=== PATIENT | male | born 1970 | race African-American/Black ===

== ENCOUNTER 2023-09-30 01:39 | Emergency (ER) | payer MEDICAID, SELFPAY ==
[2023-09-30 01:58] VITALS: BP 192/119; PULSE 83; RESP 20; TEMP 36.9; O2SAT 97; BMI 38.5
[2023-09-30 03:40] VITALS: BP 192/117; PULSE 74; RESP 18; TEMP 36.7; O2SAT 98
== END 2023-09-30 05:17 | disposition left against medical advice (07) ==
PROVIDERS: Emergency Provider Emergency Medicine
DX: R03.0 Elevated blood-pressure reading, without diagnosis of hypertension (principal)
CPT/HCPCS: 99282

== ENCOUNTER 2024-02-11 21:11 | Emergency (ER) | payer OTHER, SELFPAY ==
--- NOTE | ~2024-02-11 | US_ITS ---
EXAMINATION: US SCROTUM CLINICAL INFORMATION: Right testicle pain for months. Matter ischemia. Rule out torsion.. COMPARISON: None available. TECHNIQUE: A sonogram of the scrotum was performed assessing johns-scale appearance and color Doppler flow. Spectral Doppler analysis of the arterial and venous flow were performed in the testes bilaterally. FINDINGS: RIGHT: Right testicle measures 5.7 x 2.4 x 3.6 cm, volume 25 mL. No focal testicular parenchymal lesions are visualized. Prominent, linear vessels within the right mid testicle, of uncertain etiology and significance. Spectral Doppler analysis of the arterial and venous flow is normal in the right testis. Right epididymal head is normal in size. 0.5 x 0.5 x 0.3 cm right epididymal cyst versus spermatocele. No right hydrocele or varicocele is seen. Right epididymal Doppler flow is normal. LEFT: Left testicle measures 5.5 x 2.3 x 3.3 cm, volume 21 mL. No focal testicular parenchymal lesions are visualized. Spectral Doppler analysis of the arterial and venous flow is normal in the left testis. Left epididymal head is normal in size. No left hydrocele or varicocele is seen. Left epididymal Doppler flow is normal. US/US scrotum IMPRESSION: No acute finding. No evidence of torsion. Prominent, linear vessels within the right mid testicle, of uncertain etiology and significance.
--- NOTE | ~2024-02-11 | CT_ITS ---
EXAMINATION: CT ABDOMEN AND PELVIS WITHOUT CONTRAST CLINICAL INFORMATION: Reason for Exam R flank , RLQ pain R/O appendicitis, ureteral ston COMPARISON: None available. TECHNIQUE: Multidetector volumetric imaging was performed from the superior aspect of the liver through the pubic symphysis. Sagittal and coronal reformatted images were obtained on the technologist's workstation. This CT examination was performed using dose optimization techniques as appropriate, variously including the following: *Automated exposure control *Adjustment of mA and/or kV according to patient size (this includes techniques or standardized protocols for targeted exams where dose is matched to indication/reason for exam; i.e. extremities or head) *Use of iterative reconstruction technique DLP: 927 mGy-cm FINDINGS: LUNG BASES: Mild dependent bibasilar atelectasis. LIVER, GALLBLADDER, AND BILIARY TREE: Liver demonstrates a mildly nodular contour suspicious for stenosis. No focal lesion identified on this noncontrast exam, which limits evaluation. No biliary ductal dilatation. The gallbladder is unremarkable with no evidence of radiopaque gallstones, gallbladder wall thickening, or obvious pericholecystic inflammatory changes. PANCREAS: Unremarkable. SPLEEN: Enlarged, measuring approximately 17 cm in the axial plane. ADRENAL GLANDS: Unremarkable. KIDNEYS AND URETERS: No hydronephrosis or obstructing calculus bilaterally. BLADDER: Mildly distended and grossly unremarkable. GASTROINTESTINAL TRACT: There is a thin curvilinear hyperdensity in the second portion of the duodenum, of uncertain etiology and which could represent an ingested foreign body. Additional similar density is present within small bowel of the right lower quadrant on coronal image 49, and smaller foci of scattered hyperdensity are present within the small bowel at the lower abdomen. No evidence of bowel obstruction. No significant bowel wall thickening is seen. The appendix is unremarkable. No free fluid or free air is seen. ABDOMINAL WALL: No significant hernia is appreciated. LYMPH NODES: Normal. VASCULAR: Prominent superficial veins in the anterior abdominal wall. Recanalized umbilical vein is also noted. PELVIC VISCERA: Mildly enlarged prostate gland measuring 5.1 cm in short axis dimension. OSSEOUS STRUCTURES: Degenerative changes of the lower lumbar spine and lumbosacral junction. CT/CT abdomen pelvis wo IV con IMPRESSION: 1. No hydronephrosis or obstructing calculus. Normal appendix. 2. Thin curvilinear hyperdensity in the second portion of the duodenum, of uncertain etiology and which could represent an ingested foreign body versus other ingested material. Additional similar-appearing densities are present within small bowel at the right lower quadrant, and smaller hyperdense foci are present within the small bowel at the lower abdomen. No evidence of bowel obstruction. 3. Cirrhotic liver with sequela of portal hypertension including splenomegaly and prominent superficial veins in the anterior abdominal wall. 4. Mildly enlarged prostate gland.
--- NOTE | ~2024-02-11 | US_ITS ---
EXAMINATION: US SCROTUM CLINICAL INFORMATION: Right testicle pain for months. Matter ischemia. Rule out torsion.. COMPARISON: None available. TECHNIQUE: A sonogram of the scrotum was performed assessing johns-scale appearance and color Doppler flow. Spectral Doppler analysis of the arterial and venous flow were performed in the testes bilaterally. FINDINGS: RIGHT: Right testicle measures 5.7 x 2.4 x 3.6 cm, volume 25 mL. No focal testicular parenchymal lesions are visualized. Prominent, linear vessels within the right mid testicle, of uncertain etiology and significance. Spectral Doppler analysis of the arterial and venous flow is normal in the right testis. Right epididymal head is normal in size. 0.5 x 0.5 x 0.3 cm right epididymal cyst versus spermatocele. No right hydrocele or varicocele is seen. Right epididymal Doppler flow is normal. LEFT: Left testicle measures 5.5 x 2.3 x 3.3 cm, volume 21 mL. No focal testicular parenchymal lesions are visualized. Spectral Doppler analysis of the arterial and venous flow is normal in the left testis. Left epididymal head is normal in size. No left hydrocele or varicocele is seen. Left epididymal Doppler flow is normal. US/US scrotum doppler IMPRESSION: No acute finding. No evidence of torsion. Prominent, linear vessels within the right mid testicle, of uncertain etiology and significance.
[2024-02-11 22:36] VITALS: BP 186/101; PULSE 61; RESP 16; TEMP 36.5; O2SAT 97; BMI 37.0
[2024-02-11 22:55] VITALS: BP 192/92; PULSE 55; RESP 19; TEMP 36.5; O2SAT 97
[2024-02-11 23:05] LABS: MANUAL DIFF FLAG NO
[2024-02-11 23:15] LABS: Basophils Percent Auto 0.5 % (0-2); Eosinophils Absolute Auto 0.1 X10*3/uL (0.0-0.4); Hematocrit 48.1 % (42.0-52.0); Hemoglobin 16.6 g/dl (14.0-18.0); Imm Gran Abs Auto 0.01 X10*3/uL (0.00-0.03); Imm Gran Pct Auto 0.2 % (0.0-0.4); Lymphocytes Absolute Auto 1.6 X10*3/uL (1.2-4.9); Lymphocytes Percent Auto 27.5 % (20-40); Mean Corpuscular HGB Conc 34.5 g/dl (31.0-36.0); Mean Corpuscular Hemoglobin 28.9 pg (27.0-33.0); Mean Corpuscular Volume 83.8 fL (80.0-98.0); Mean Platelet Volume 10.9 fL (9.4-12.4); Monocytes Absolute Auto 0.3 X10*3/uL (0.1-1.2); Monocytes Percent Auto 5.8 % (2-11); Neutrophils Absolute Auto 3.8 x10*3/uL (2.0-8.3); Platelet Count 130 X10*3/uL (160-400); Red Blood Count 5.74 X10*6/uL (4.60-5.80); White Blood Count 5.9 X10*3/uL (4.8-10.8)
[2024-02-11 23:16] LABS: Appearance Urine Clear; Color Urine Yellow; Glucose Urine UA Negative (Negative); Leukocyte Esterase Urine Small (1+) (Negative); Nitrite Urine Negative (Negative); PH 5.5 (5.0-9.0); UMIC TRIGGER UACC YES; Urine Blood Negative (Negative); Urine Ketones Negative (Negative); Urine Protein Negative (Neg-Trace)
[2024-02-11 23:19] LABS: Alanine Aminotransferase 26 U/L (0-40); Albumin Level 4.2 g/dL (3.5-5.0); Alkaline Phosphatase 118 U/L (39-117); Anion Gap 14 (12-20); Aspartate Amino Transferase 32 U/L (5-37); Bilirubin Total 0.8 mg/dL (0.0-1.0); Blood Urea Nitrogen 12 mg/dL (9-16); Calcium 9.9 mg/dL (8.4-10.2); Carbon Dioxide 25 mmol/L (22-29); Chloride 106 mmol/L (96-108); Creatinine Clr Calc Pharmacy 148.4; Estimated Glomerular Filt Rate > 60; Glucose Random 123 mg/dL (60-115); Potassium 3.3 mmol/L (3.3-5.1); Sodium 142 mmol/L (135-145); Total Protein 7.7 g/dL (6.5-8.0)
[2024-02-11 23:24] LABS: Bacteria Urine None Seen (None Seen); Hyaline Casts Urine 0-2 /LPF (0-2); RBC Urine 0-2 /HPF (0-2); Squamous Epithelial Cell Urine 0-2 /HPF (0-2); UACC Culture Trigger YES; WBC Urine 0-5 /HPF (0-5)
[2024-02-12 01:43] VITALS: BP 185/98; PULSE 51; RESP 14; TEMP 36.6; O2SAT 95
--- NOTE | 2024-02-12 01:49 | PC.NURSE ---
Pt aox4 resting at the beside. No apparent distress noted. Reports right sided groin pain/testicular pain, 8/10, x 4 months. Worsens with sexual intercourse and bloody discharge. Denies any N/V/D, chest pain, or sob. Pending physician eval. Monitoring is ongoing.
[2024-02-12 03:02] VITALS: BP 180/93; PULSE 49; RESP 17; O2SAT 97
--- NOTE | 2024-02-12 04:37 | ED.MALEGU ---
HPI - Male Genitourinary General Chief complaint: Urogenital-Male Stated complaint: blood in sperm? Pain Time Seen by Provider: 02/12/24 04:37 Source: patient Mode of arrival: ambulatory Limitations: no limitations History of Present Illness HPI Narrative: 53-year-old male with a history of hypertension, hepatitis-C, treated, cirrhosis who presents emergency department for evaluation of right flank pain, right lower quadrant pain, right testicular pain, hematospermia. The patient states he has been having right-sided abdominal pain for approximately 1.5 months. He states last night at around 20:00 hours the pain became worse. Points to his right flank and right lower quadrant when asked to localize the pain. States the pain does radiate to his right testicle. He states the pain is severe, sharp pain which is constant and is 10/10. Patient states over the last 4 months whenever he ejaculates, he noticed his blood in the semen. He states that the ejaculation is painful. He states that he does have urinary frequency but no dysuria. Patient has not noticed any penile discharge. He is sexually active. He denied fever, chills, nausea, vomiting, diarrhea, change in his bowel movements. Related Data Previous Rx's ?Medication ?Instructions ?Recorded doxycycline hyclate 100 mg tablet 100 mg PO Q12H 14 days #28 tabs 02/12/24 morphine 15 mg immediate release 15 mg PO Q6H PRN pain #10 tabs 02/12/24 tablet Allergies Allergy/AdvReac Type Severity Reaction Status Date / Time Codeine Sulfate Allergy Unknown Unknown Uncoded 02/11/24 22:42 [facility] Past Medical History [facility] Narrative: Past medical history: Hypertension. Social History Social History Smoked in Last 30 Days: Yes Use of substances other than those prescribed or required for medical reasons: No Advance Directives: No Advance Directives Information Provided: No Do you have a plan to hurt others: No Plan Physical Exam Vital Signs: Vital Signs: Last Vital Signs Temp 97.6 F 02/12/24 05:08 Pulse 50 02/12/24 05:08 Resp 14 02/12/24 05:08 BP 182/90 H 02/12/24 05:08 Pulse Ox 95 02/12/24 05:08 O2 Del Method Room Air 02/12/24 05:08 BMI result Body Mass Index 37.0 Vital signs revealed low heart rate 49, elevated blood pressure 180/93 Exam: General: Awake, alert in no distress Head: Normocephalic, atraumatic EENT: PERRL, Lids normal, sclera normal, conjunctiva normal, nose normal , ears normal, throat without erythema or exudates Neck: Supple, no adenopathy Lung: breath sounds symmetric, no wheezing, rales or rhonchi Chest: symmetric movement, nontender Heart: regular rate and rhythm, normal S1, S2 no murmurs or rubs Abdomen: Patient has moderate right lower quadrant tenderness, normoactive bowel sounds, no rebound, no voluntary or involuntary guarding exam: Normal uncircumcised male penis, no urethral discharge noted, both testicles are descended, there is tenderness with the palpation of the right tenderness and right epididymitis with no enlargement of these structures, scrotal skin is normal with no erythema or increased warmth Back: no vertebral tenderness, mild to moderate right CVA tenderness Extremities: no deformities, moves all extremities symmetrically Neuro: Awake, alert, oriented, normal speech, moves all extremities symmetrically Psych: Pleasant, cooperative Medications Administered Discontinued Medications Generic Name Dose Route Start Last Admin Trade Name Freq PRN Reason Stop Dose Admin Sodium Chloride 1,000 mls @ 999 mls/hr 02/12/24 04:51 02/12/24 07:31 Ns IV 02/12/24 05:51 Infused .Q1H1M STA Infusion Ketorolac Tromethamine 15 mg 02/12/24 04:51 02/12/24 05:11 Ketorolac Tromethamine 15 Mg/Ml Vial IVPUSH 02/12/24 04:52 15 mg ONCE STA Administration Morphine Sulfate 4 mg 02/12/24 04:51 02/12/24 05:12 Morphine Sulfate 4 Mg/Ml Cartridge IVPUSH 02/12/24 04:52 4 mg ONCE STA Administration Protocol Medical Decision Making Medical Decision Making MDM Narrative: 53-year-old male with a history of hypertension who presents emergency department for evaluation of right flank pain, right lower quadrant pain, right testicular pain x1 0.5 months, worse since 20:00 hours last nightt and hematospermia x4 months every time he ejaculates. Patient does have urinary frequency but no penile discharge. He is sexually active. He states that his right flank pain and right lower quadrant pain is severe and is 10/10. He denied fever, chills, nausea, vomiting, diarrhea, change in his bowel movements. Vital signs did reveal low heart rate and elevated blood pressure. Physical examination did reveal right lower quadrant, right flank tenderness, right testicular and epididymal tenderness. Differential diagnosis: ?Includes but is not limited to STD, urethritis, prostatitis, epididymitis, testicular torsion, appendicitis, renal colic, ureteral colic, ureteral stone Following evaluation was ordered: CBC, CMP, lipase, urinalysis, urine for chlamydia and Neisseria gonorrhea PCR, CT abdomen pelvis without IV contrast, ultrasound scrotum, ultrasound scrotum Doppler Patient was initially treated with the following:Normal saline IV x1 L, ketorolac 15 mg IV, morphine 4 mg IV Course: 07:27 hours My interpretation patient's laboratory evaluation is as follows: CBC was normal except for a low platelet count of a 851570. Glucose elevated 123. Alk-phos elevated 118. Urinalysis was positive for leukocyte esterase. Microscopic revealed 0-2 RBCs, 0-[address] scan of the patient's abdomen pelvis with IV contrast did not reveal a clear etiology for the patient's pain, there was no kidney or ureteral stones noted. The patient does have cirrhosis with splenomegaly but this is secondary to his hepatitis-C. This explains his low platelet count as well. Patient does have an enlarged prostate. The patient will be treated for possible urethritis/prostatitis is the cause of his hematospermia. Patient was given ceftriaxone 500 mg with lidocaine IM, metronidazole 2 g IV and prescribed doxycycline 100 mg q.12 hours times 14 days. Given his cirrhosis, he can not take Tylenol or ibuprofen for his pain therefore he was prescribed morphine 15 mg every 6 hours as needed for pain. He was given printed and verbal instructions and discharged home. Patient was also given a work note. Admission/Observation Consideration of admission/observation: Escalation of care including admission/observation considered Lab Data MDM Lab Attestation statement: I reviewed the patient's lab results. 02/11/24 22:59 02/11/24 22:59 Labs: Lab Results 02/11/24 02/11/24 Range/Units 22:59 23:11 WBC 5.9 (4.8-10.8) X10*3/uL RBC 5.74 (4.60-5.80) X10*6/uL Hgb 16.6 (14.0-18.0) g/dl Hct 48.1 (42.0-52.0) % MCV 83.8 (80.0-98.0) fL MCH 28.9 (27.0-33.0) pg MCHC 34.5 (31.0-36.0) g/dl RDW 13.0 (11.0-16.0) % Plt Count 130 L (160-400) X10*3/uL MPV 10.9 (9.4-12.4) fL Immature Gran % (Auto) 0.2 (0.0-0.4) % Neut % (Auto) 64.0 (45-73) % Lymph % (Auto) 27.5 (20-40) % [place] % (Auto) 5.8 (2-11) % Eos % (Auto) 2.0 (0-4) % Baso % (Auto) 0.5 (0-2) % Lymph # (Auto) 1.6 (1.2-4.9) X10*3/uL [place] # (Auto) 0.3 (0.1-1.2) X10*3/uL Eos # (Auto) 0.1 (0.0-0.4) X10*3/uL Baso # (Auto) 0.0 (0.0-0.2) X10*3/uL Abs Immat Gran (auto) 0.01 (0.00-0.03) X10*3/uL Absolute Neuts (auto) 3.8 (2.0-8.3) x10*3/uL Absolute Nucleated RBC 0.000 (0.0-0.012) X10*3/uL Nucleated RBC % (auto) 0.0 (0.0-0.2) /100WBC Sodium 142 (135-145) mmol/L Potassium 3.3 (3.3-5.1) mmol/L Chloride 106 (96-108) mmol/L Carbon Dioxide 25 (22-29) mmol/L Anion Gap 14 (12-20) BUN 12 (9-16) mg/dL Creatinine 0.86 (0.5-1.4) mg/dL Estim Creat Clear Calc 148.4 Estimated GFR > 60 Random Glucose 123 H (60-115) mg/dL Calcium 9.9 (8.4-10.2) mg/dL Total Bilirubin 0.8 (0.0-1.0) mg/dL AST 32 (5-37) U/L ALT 26 (0-40) U/L Alkaline Phosphatase 118 H (39-117) U/L Total Protein 7.7 (6.5-8.0) g/dL Albumin 4.2 (3.5-5.0) g/dL Lipase 31 (8-78) U/L Urine Color Yellow Urine Appearance Clear Urine pH 5.5 (5.0-9.0) Ur Specific [place] 1.020 (1.005-1.025) Urine Protein Negative (Neg-Trace) mg/dL Urine Glucose (UA) Negative (Negative) mg/dL Urine Ketones Negative (Negative) mg/dL Urine Blood Negative (Negative) Urine Nitrite Negative (Negative) Ur Leukocyte Esterase Small (1+) H (Negative) Urine RBC 0-2 (0-2) /HPF Urine WBC 0-5 (0-5) /HPF Ur Squamous Epith Cells 0-2 (0-2) /HPF Urine Bacteria None Seen (None Seen) Hyaline Casts 0-2 (0-2) /LPF Radiology Impression Discussion of test interpretation with radiology: I have reviewed the radiologist's reading. Radiologist Impression: CT abdomen pelvis wo IV con IMPRESSION: 1. No hydronephrosis or obstructing calculus. Normal appendix. 2. Thin curvilinear hyperdensity in the second portion of the duodenum, of uncertain etiology and which could represent an ingested foreign body versus other ingested material. Additional similar-appearing densities are present within small bowel at the right lower quadrant, and smaller hyperdense foci are present within the small bowel at the lower abdomen. No evidence of bowel obstruction. 3. Cirrhotic liver with sequela of portal hypertension including splenomegaly and prominent superficial veins in the anterior abdominal wall. 4. Mildly enlarged prostate gland. Dictated By: Hardeep Singer MD US scrotum IMPRESSION: No acute finding. No evidence of torsion. Prominent, linear vessels within the right mid testicle, of uncertain etiology and significance. Dictated By: Tanner Brady Prescription Management I considered prescription management with: Pain Medication and Antibiotic Critical Care Time Critical Care Time Critical Care Time: Yes Total Critical Care Time: 35 Attestation: Critical Care: The patient was critically ill with a high probability of imminent or life threatening deterioration. I spent greater than 30 minutes of discontinuous time evaluating the patient,delivering critical care at the bedside, discussing and evaluating pertinent data with consultants. Critical care time does not include time spent performing separately billable procedures or teaching. Total time spent performing critical care was 35 minutes. Discharge Plan Discharge Clinical Impression: Hematospermia, Acute prostatitis, Pain in right testicle Abdominal pain Qualifiers: Abdominal location: right lower quadrant Qualified Code(s): R10.31 - Right lower quadrant pain Patient Disposition: Home, Self-Care Instructions: Prostatitis (ED) Additional Instructions: The CT scan is consistent with cirrhosis of the liver and enlarged spleen which was most likely caused by your hepatitis-C which was treated. There was no finding on the CT scan to explain your pain. The ultrasound of your testicle did not reveal any abnormality to explain your pain. It is possible that you may have an infection of your prostate and this may be causing your pain in the testicle as well as the blood in your semen (hematospermia) You were treated with ceftriaxone mixed with lidocaine 500 mg IM for possible gonorrhea. You were also treated with metronidazole 2 g orally for possible Trichomonas. I gave you a prescription for doxycycline 100 mg every 12 hours for 14 days, this will treat chlamydia and a prostate infection. Given your cirrhosis you can not take Tylenol ibuprofen therefore I prescribed morphine 15 mg every 6 hours as needed for pain. You were given pills. This medication can be addicting and if your concerned about addiction do not get the prescription filled or ask for less pills 10 prescribed. This medication will make you sleepy, do not drive or work while taking this medication. You did receive morphine IV here in the emergency department as well. Follow-up with our on-call urologist in 2 weeks for re-evaluation. Please return to the emergency department if your symptoms get worse or if you develop any symptoms that are concerning to you. Prescriptions: New morphine 15 mg tablet 15 mg PO Q6H PRN (Reason: pain) Qty: 10 0RF Rx Instructions: The patient may ask for partial fill; Partial Fill upon patient request. doxycycline hyclate 100 mg tablet 100 mg PO Q12H 14 Days Qty: 28 0RF Referrals: Leeann Bynum MD [Physician] - 10 days (Hematospermia, right testicular pain, treated for possible prostatitis with doxycycline 100 mg q.12 hours times 14 days, ceftriaxone 1 g IV, metronidazole 2 g orally) Stand Alone Forms: Work/School Release Print Language: Portuguese
[2024-02-12 05:08] VITALS: BP 182/90; PULSE 50; RESP 14; TEMP 36.4; O2SAT 95
[2024-02-12] MEDS: 0.9 % Sodium Chloride 1,000 ML 999 ML IV (05:11)
[2024-02-12] MEDS: Ketorolac Tromethamine 15 MG/ML VIAL IVPUSH (05:11)
[2024-02-12 05:12] LABS: Lipase 31 U/L (8-78)
[2024-02-12] MEDS: Morphine Sulfate 4 MG/ML CARTRIDGE IVPUSH (05:12)
--- NOTE | 2024-02-12 05:19 | PC.NURSE ---
20G IV line established on the L AC. Pt medicated as per DEC. Pt tolerated well. Dirty urine obtained and sent to the lab. Monitoring is ongoing.
[2024-02-12 07:52] VITALS: BP 183/100; PULSE 60; RESP 14; O2SAT 94
[2024-02-12] MEDS: cefTRIAXone sodium 500 MG, Lidocaine HCl 1 % MPF 1 ML IM (08:19)
[2024-02-12] MEDS: metroNIDAZOLE 500 MG TABLET 2000 MG PO (08:19)
[2024-02-12 12:23] LABS: CT PCR NOT DETECTED (Not Detect.); NG PCR NOT DETECTED (Not Detect.)
== END 2024-02-12 09:19 | disposition home or self-care (01) ==
PROVIDERS: Emergency Provider Emergency Medicine Emergency Medical Services
DX: N41.0 Acute prostatitis (principal); R36.1 Hematospermia; N50.811 Right testicular pain; R10.31 Right lower quadrant pain; I10 Essential (primary) hypertension
CPT/HCPCS: 0353U; 36415; 74176; 76870; 80053; 81001; 83690; 85025; 87086; 93975; 96361; 96372; 96374; 96375; 99284; 99285; J0696; J1885; J2270